=== PATIENT | male | born 1975 | race Asian ===

== ENCOUNTER 2018-05-13 08:48 | Emergency (ER) | payer OTHER ==
[2018-05-13 08:55] VITALS: BP 108/76
--- NOTE | 2018-05-13 09:19 | UC ---
Throat Pain/Nasal Srinivas HPI - HPI Summary HPI Summary: Pt presents with c/o worsening throat pain X 4 days. Pt has known exposure to strep throat. His 6 yo daughter tested positive this week for strep at PCP office. - History of Current Complaint Chief Complaint: UCGeneralIllness Stated Complaint: SORE THROAT Time Seen by Provider: 05/13/18 08:57 Hx Obtained From: Patient Onset/Duration: Sudden Onset, Lasting Days, Worse Since - onset Severity: Moderate Pain Intensity: 7 Cough: None Associated Signs & Symptoms: Positive: Dysphagia - Epiglottits Risk Factors Epiglottis Risk Factors: Sudden Onset - Allergies/Home Medications Allergies/Adverse Reactions: Allergies Allergy/AdvReac Type Severity Reaction Status Date / Time No Known Allergies Allergy Verified 05/13/18 08:55 PMH/Surg Hx/FS Hx/Imm Hx Previously Healthy: Yes - Surgical History Surgical History: None - Family History Known Family History: Positive: Cardiac Disease - Social History Occupation: Employed Full-time Lives: With Family Alcohol Use: None Substance Use Type: None Smoking Status (MU): Never Smoked Tobacco Have You Smoked in the Last Year: No Review of Systems Constitutional: Fatigue Skin: Negative Eyes: Negative ENT: Sore Throat Respiratory: Negative Cardiovascular: Negative Gastrointestinal: Negative Genitourinary: Negative Motor: Negative Neurovascular: Negative Musculoskeletal: Negative Neurological: Negative Psychological: Negative Is Patient Immunocompromised?: No All Other Systems Reviewed And Are Negative: Yes Physical Exam Triage Information Reviewed: Yes Appearance: Ill-Appearing, Pain Distress Vital Signs: Initial Vital Signs Temp 98 F 05/13/18 08:51 Pulse 60 05/13/18 08:51 Resp 17 05/13/18 08:51 BP 108/76 05/13/18 08:51 Pulse Ox 100 05/13/18 08:51 Vital Signs Reviewed: Yes Eye Exam: Normal ENT: Positive: Pharyngeal erythema, Tonsillar swelling Dental Exam: Normal Neck exam: Normal Respiratory Exam: Normal Cardiovascular Exam: Normal Musculoskeletal Exam: Normal Neurological Exam: Normal Psychological Exam: Normal Skin Exam: Normal Throat Pain/Nasal Course/Dx - Differential Dx/Diagnosis Differential Diagnosis/HQI/PQRI: Pharyngitis, Tonsillitis Provider Diagnoses: Tonsillitis Discharge - Sign-Out/Discharge Documenting (check all that apply): Patient Departure All imaging exams completed and their final reports reviewed: No Studies - Discharge Plan Condition: Stable Disposition: HOME Prescriptions: Penicillin VK 500 MG TAB(NF) [Penicillin VK 500 mg Tab] 500 mg PO Q8H #30 tab Patient Education Materials: Tonsillitis (ED) Referrals: No Primary Care Phys,NOPCP [Primary Care Provider] - [facility] [Outside] - If Needed - Billing Disposition and Condition Condition: STABLE Disposition: Home
== END 2018-05-13 09:27 | disposition home or self-care (01) ==
LOC: UCEAST 08:48
DX: J03.90 Acute tonsillitis, unspecified (principal)
CPT/HCPCS: 87651; 99202; G0463

== ENCOUNTER 2018-08-06 09:53 | Emergency (ER) | payer OTHER ==
--- NOTE | 2018-08-06 10:25 | UC ---
HPI Febrile Illness - HPI Summary HPI Summary: 43 yo, previously well, with onset of fever over the past 2 days, with some associated cough and chest tightness. He has had episodes of weakness and dizzyness where he has to lie down, but no syncopal episodes. Repeated episodes of weakness (laid on the floor of the department for a while when he came in today.). No infectious contacts. Has not had a flu shot. - History of Current Complaint Chief Complaint: UCRespiratory Time Seen by Provider: 08/06/18 10:21 Hx Obtained From: Patient Onset/Duration: Started Days Ago - 3 Timing: Intermittent - off and on has felt worsening of symptoms; yesterday he was up and more active Initial Severity: Moderate Current Severity: Moderate Pain Intensity: 4 Alleviating Factors: OTC Medicine - acetaminophen for fever. Associated Signs and Symptoms: Arthralgia, Cough, Diaphoresis - Risk Factors Pseudomonas Risk Factors: Negative Serious Bacterial Infection Risk Factors: Negative - Allergy/Home Medications Allergies/Adverse Reactions: Allergies Allergy/AdvReac Type Severity Reaction Status Date / Time No Known Allergies Allergy Verified 05/13/18 08:55 PMH/Surg Hx/FS Hx/Imm Hx - Additional Past Medical History Additional PMH: previous hx of hypotension with illnesses. Previously Healthy: Yes - Surgical History Surgical History: None - Family History Known Family History: Positive: Cardiac Disease - Social History Occupation: Employed Full-time Alcohol Use: None Substance Use Type: None Smoking Status (MU): Never Smoked Tobacco Have You Smoked in the Last Year: No Review of Systems All Other Systems Reviewed And Are Negative: Yes Constitutional: Positive: Fever, Chills, Fatigue Skin: Positive: Negative Eyes: Positive: Negative ENT: Positive: Negative Respiratory: Positive: Cough Cardiovascular: Positive: Negative - past eval of palpitations. Gastrointestinal: Positive: Negative Genitourinary: Positive: Negative Motor: Positive: Negative Neurovascular: Positive: Negative Musculoskeletal: Positive: Arthralgia, Myalgia Neurological: Positive: Weakness Psychological: Positive: Negative Is Patient Immunocompromised?: No Physical Exam Triage Information Reviewed: Yes Appearance: No Pain Distress, Ill-Appearing - looks unwell, but alert. Diaphoretic. Vital Signs: Initial Vital Signs Temp 101.8 F 08/06/18 10:00 Pulse 73 08/06/18 10:00 Resp 22 08/06/18 10:00 BP 82/50 08/06/18 10:00 Pulse Ox 97 08/06/18 10:00 Eyes: Positive: Conjunctiva Clear ENT: Positive: Pharyngeal erythema, TMs normal. Negative: Tonsillar swelling, Tonsillar exudate Neck: Positive: Supple, Nontender, No Lymphadenopathy Respiratory: Positive: Lungs clear, Normal breath sounds Cardiovascular: Positive: RRR, No Murmur Abdomen Description: Positive: Nontender, No Organomegaly, Soft Musculoskeletal Exam: Normal Neurological: Positive: Alert, Muscle Tone Normal Psychological Exam: Normal Skin Exam: Normal Diagnostics - Laboratory Diagnostic Studies Completed/Ordered: Flu A positive. Re-Evaluation - Re-Evaluation First Eval Re-Evaluation Time: 12:15 - walking improved. Change: Improved Course/Dx - Course Course Of Treatment: Fluid bolus due to episodes of hypotension documented here. Tamiflu given. To the emergency room if not improving. - Febrile Illness Differential Diagnoses: Fever of Unknown Origin, Sepsis, Other: - influenza - Diagnoses Provider Diagnosis: Influenza A, Hypotension due to hypovolemia Discharge - Sign-Out/Discharge Documenting (check all that apply): Patient Departure All imaging exams completed and their final reports reviewed: No Studies - Discharge Plan Condition: Stable Disposition: HOME Prescriptions: Oseltamivir SUSP 75 MG dose* [Tamiflu SUSP 75 MG dose*] 75 mg PO BID #9 oral.[email or web address] Patient Education Materials: Influenza (ED) Forms: *Work Release Referrals: No Primary Care Phys,NOPCP [Primary Care Provider] - Additional Instructions: As discussed, you will not feel better for some days, possibly up to a week. High intake of fluids is essential. I suggest soups, juices, tea with honey, with the possible addition of oral rehydration which you can purchase at the pharmacy. If anyone in your family is immune compromised, has asthma, or is elderly, please advise them to contact their health care providers to see if they need preventative use of Tamiflu. If you continue to have problem maintaining your blood pressure, please go to the emergency department for assessment. - Billing Disposition and Condition Condition: STABLE Disposition: Home
[2018-08-06] MEDS ORDERED: NS 0.9% 1000 ML* 1,000 ML IV ONE (10:48)
[2018-08-06] MEDS ORDERED: Oseltamivir CAP* 75 MG CAP PO ONE (10:56)
[2018-08-06] MEDS ORDERED: Ibuprofen TAB* 600 MG PO ONE (12:15)
[2018-08-06 12:26] VITALS: BP 106/66
== END 2018-08-06 12:31 | disposition home or self-care (01) ==
LOC: UCEAST 09:53
DX: J10.1 Influenza due to other identified influenza virus with other respiratory manifestations (principal); I95.89 Other hypotension
CPT/HCPCS: 96360; 99212; A9270-GY; G0463